=== PATIENT | female | born 1990 ===

== ENCOUNTER 2020-03-07 00:20 | Inpatient (IN) | payer OTHER ==
[2020-03-07] MEDS ORDERED: Promethazine HCl 25 MG/ML VIAL IM PRN ×2 (06:09→15:19)
[2020-03-07] MEDS ORDERED: Ondansetron PF 4 MG/2 ML Vial IVP PRN ×3 (06:09→15:19)
[2020-03-07] MEDS ORDERED: Lactated Ringer's 1,000 ML IV SCH (06:09)
[2020-03-07] MEDS ORDERED: hydrALAZINE 20 MG/ML VIAL SLOW IVP PRN ×2 (06:09→11:27)
[2020-03-07] MEDS ORDERED: CEFAZOLIN 2 GM in Premix Bag 1 BAG IVPB SCH (06:15)
[2020-03-07] MEDS ORDERED: Bicitra 30 ML UDCUP PO SCH (06:15)
[2020-03-07 06:18] VITALS: BMI 44.2
[2020-03-07 06:24] LABS: Hemoglobin 12.7 g/dL (12.0-16.0); Mean Corpuscular HGB CONC 34.5 g/dL (32.0-36.0); Mean Corpuscular Hemoglobin 28.7 pg (27.0-31.0); Mean Corpuscular Volume 83.2 fL (78.0-98.0); Mean Platelet Volume 9.5 fL (7.4-10.4); Platelet Count 180 thou/uL (130-400); RBC Distribution Width 14.6 % (11.5-14.5); Red Blood Cell (RBC) Count 4.42 mill/uL (4.20-5.40); White Blood Cell (WBC) Count 9.4 thou/uL (4.8-10.8)
[2020-03-07 07:00] LABS: Syphilis Antibody Nonreactive (Nonreactive); Syphilis Antibody Index 0.04 S/CO (<1.00 Non-Reactive)
[2020-03-07] MEDS ORDERED: EPHEDRINE 25 MG/5 ML SYRINGE ONE (07:03)
[2020-03-07] MEDS ORDERED: MORPHINE 5 MG/10 ML PF VIAL ONE (07:03)
[2020-03-07] MEDS ORDERED: PHENYLEPHRINE-NS 100 MCG/ML 10 ML SYRINGE ONE (07:03)
[2020-03-07] MEDS ORDERED: Ondansetron PF 4 MG/2 ML Vial ONE (07:03)
[2020-03-07] MEDS ORDERED: Ketorolac Tromethamine 30 MG/ML VIAL ONE (07:03)
[2020-03-07] MEDS ORDERED: Oxytocin 10 UNITS/ML VIAL ONE (07:03)
[2020-03-07 07:04] LABS: HBSAg Index 0.18 S/CO (0-0.99); Hep B Surf Ag Non-Reactive S/CO (NonReactive)
[2020-03-07] MEDS ORDERED: Lidocaine 1% PF 5 ML VIAL ONE (07:56)
[2020-03-07] MEDS ORDERED: Promethazine HCl 25 MG/ML VIAL ONE (08:52)
[2020-03-07] MEDS ORDERED: Sodium Chloride 0.9% 10 ML ONE (08:52)
[2020-03-07] MEDS ORDERED: Ondansetron HCl/PF 4 MG/2 ML Vial IVP PRN (09:18)
[2020-03-07] MEDS ORDERED: HYDROmorphone 2 MG/ML VIAL SLOW IVP PRN (09:18)
[2020-03-07] MEDS ORDERED: Meperidine HCl/PF 25 MG/ML VIAL SLOW IVP PRN (09:18)
[2020-03-07] MEDS ORDERED: L&D-Morphine 4 MG/ML VIAL SLOW IVP PRN (09:18)
[2020-03-07] MEDS ORDERED: Lanolin Ointment 7 GM TUBE TOP PRN (11:27)
[2020-03-07] MEDS ORDERED: Simethicone Chewable 80 MG TAB PO PRN (11:27)
[2020-03-07] MEDS ORDERED: HYDROcodone/Acetaminophen 5/325 mg Tablet PO PRN ×2 (11:27)
[2020-03-07] MEDS ORDERED: diphenhydrAMINE 25 MG CAP PO PRN (11:27)
[2020-03-07] MEDS ORDERED: NS / Oxytocin 40 units/1000ml 1,000 ML IV SCH (11:27)
[2020-03-07] MEDS ORDERED: Bisacodyl 10 MG SUPP PR PRN (11:27)
[2020-03-07] MEDS ORDERED: NS / Oxytocin 40 units/1000ml 1,000 ML ONE (11:29)
[2020-03-07] MEDS ORDERED: Prenatal Vitamin 1 TAB PO SCH (11:45)
[2020-03-07] MEDS ORDERED: Ketorolac Tromethamine 30 MG/ML VIAL IVP SCH (12:59)
[2020-03-07] MEDS ORDERED: Ibuprofen 800 MG TAB PO SCH (14:00)
[2020-03-07] MEDS ORDERED: Naloxone HCl 0.4 mg/ml Vial IVP PRN ×2 (15:19)
[2020-03-07] MEDS ORDERED: Naloxone HCl 0.4 mg/ml Vial IV PRN (15:19)
[2020-03-07] MEDS ORDERED: diphenhydrAMINE 50 MG/ML VIAL IVP PRN (15:19)
[2020-03-07] MEDS ORDERED: Promethazine HCl 25 MG SUPP PR PRN (15:19)
[2020-03-07] MEDS ORDERED: Communication Order-Pharmacy FS SCH (15:30)
--- NOTE | 2020-03-07 15:36 | OP ---
DATE OF PROCEDURE: 03/07/2020 PREOPERATIVE DIAGNOSES: Previous section, unstable lie, declines trial of labor. POSTOPERATIVE DIAGNOSES: Previous section, unstable lie, declines trial of labor. PROCEDURE PERFORMED: Low transverse section. ASSISTANTS: Shavonne Guzman MD and DAVID Walter3. ANESTHESIA: Spinal per Dr. Briscoe. COMPLICATIONS: None. EBL: 600 mL. OPERATIVE FINDINGS: 1. Low-transverse hysterotomy without extension. 2. Normal uterus, tubes, and ovaries bilaterally. 3. Infant delivered from vertex presentation with clear fluid, Apgars, weight, and pending female . 4. Fundus firm after delivery of placenta. 5. Surgical site hemostatic. PROCEDURE IN DETAIL: The patient was taken back to the OR with IV fluids running. Once she was in the OR, spinal anesthesia was obtained. Of note, it took approximately 30 minutes to obtain spinal anesthesia likely due to patient's body habitus. Once the anesthesia was obtained, the patient was placed in dorsal supine position with a left lateral tilt. Mendoza catheter was placed using sterile technique. The abdomen was prepped and draped in normal fashion for section. After SCDs were applied to the lower extremities, and 2 g of Ancef had been administered. After the abdomen was draped, the surgeons were gowned and gloved, and anesthesia was tested and found to be adequate. A Pfannenstiel skin incision was made with a scalpel. The skin incision was carried down through subcutaneous layer to the fascia. Once the fascia was reached, it was incised in the midline and extended superolaterally using curved Godwin scissors. Melodie clamps were placed at the superior border of the fascia, which was sharply and bluntly dissected off the rectus abdominis muscles in both cephalad and caudad directions. The rectus muscles were in the midline and bluntly stretched. Some peritoneal adhesions between the anterior abdominal wall, bladder reflection, and uterine serosa were dissected with Bovie cauterization. The Joseluis O retractor was placed into the peritoneal cavity for retraction visualization and protection of the wound. A low-transverse hysterotomy was then made with a scalpel and stretched using the Espinoza maneuver. An amniotomy was performed with clear fluid noted. Infant was delivered from vertex presentation. The nose and mouth were suctioned. The cord was doubly clamped and cut. The infant was handed off to special care nurse in attendance. Cord blood was collected. The uterus was exteriorized, massaged firm, and cleared of clot and debris. The uterus was returned to the abdominal cavity. The hysterotomy was closed with Monocryl suture in a running locked fashion. After the hysterotomy was closed, it was inspected, and a small area of bleeding was noted at the serosal edge in the left corner. An additional [id number] suture was placed here with hemostasis noted. The hysterotomy and paracolic gutters were then irrigated and suctioned dry. The hysterotomy was inspected again with no bleeding noted. The Joseluis O retractor was removed from the abdominal cavity. The omentum, rectus muscle, and fascia were inspected with no bleeding noted. The rectus fascia was then reapproximated from corner to corner and tied together in the midline using PDS suture. Subcutaneous layer was irrigated and dry. No areas of bleeding were noted. The subcutaneous layer was reapproximated with plain gut suture. The skin was closed with 4-0 Monocryl and dressed with a LEWIS prophylactic negative pressure dressing. The patient tolerated the procedure well. The counts were correct x2. The fundus was firm at the end of the case, and there were no complications. Job ID: [id number]
[2020-03-07] MEDS: Ketorolac Tromethamine 30 MG/ML VIAL IVP PRN (18:20)
[2020-03-07] MEDS: Docusate Calcium (SURFAK) 240 MG CAP PO SCH (21:43)
[2020-03-08] MEDS: Ketorolac Tromethamine 30 MG/ML VIAL IVP PRN (00:40)
[2020-03-08] MEDS: Ferrous Sulfate 325 MG TAB PO SCH ×2 (01:56→09:07)
[2020-03-08] MEDS: HYDROcodone/Acetaminophen 5/325 mg Tablet PO PRN ×4 (02:51→21:11)
[2020-03-08 05:55] LABS: Hemoglobin 10.8 g/dL (12.0-16.0); Mean Corpuscular HGB CONC 32.9 g/dL (32.0-36.0); Mean Corpuscular Volume 84.9 fL (78.0-98.0); Mean Platelet Volume 9.3 fL (7.4-10.4); Platelet Count 138 thou/uL (130-400); RBC Distribution Width 14.8 % (11.5-14.5); Red Blood Cell (RBC) Count 3.85 mill/uL (4.20-5.40); White Blood Cell (WBC) Count 8.9 thou/uL (4.8-10.8)
[2020-03-08] MEDS: Ibuprofen 800 MG TAB PO SCH ×3 (06:33→21:11)
[2020-03-08] MEDS ORDERED: Adacel (T-DAP) 0.5 ML SYRINGE IM ONE (09:00)
[2020-03-08] MEDS: Prenatal Vitamin 1 TAB PO SCH (09:06)
[2020-03-08] MEDS: Docusate Calcium (SURFAK) 240 MG CAP PO SCH ×2 (09:06→21:11)
--- NOTE | 2020-03-08 09:59 | PDOC.PP ---
Post Progress Note Post Day #: 1 Subjective: doing well, LEWIS dressing working well for her, baby latched well yesterday, pain is controlled PO intake tolerated: yes Flatus: yes Ambulation: yes Vital Signs (12 hours) Temp Pulse Resp BP Pulse Ox 03/08/20 06:24 98.6 F 87 16 108/57 L 98 03/08/20 00:29 98.0 F 96 18 109/60 Weight Weight 274 lb - Physical Examination General: NAD Psychiatric: A&Ox3, normal affect Result Diagrams: 03/08/20 05:44 Additional Labs: Post Labs Blood Type A NEGATIVE 03/07/20 06:10 Hep Bs Antigen Non-Reactive S/CO (NonReactive) 03/07/20 06:10 (1) 39 weeks gestation of Code(s): Z3A.39 - 39 WEEKS GESTATION OF Status: Acute (2) Status post repeat low transverse section Code(s): Z98.891 - HISTORY OF UTERINE SCAR FROM PREVIOUS SURGERY Status: Acute - Assessment/Plan POD1 doing well sp RCS. Likely DC tomorrow.
[2020-03-08] MEDS ORDERED: Ibuprofen 800 MG TAB PO SCH (22:00)
[2020-03-09] MEDS: Ferrous Sulfate 325 MG TAB PO SCH ×2 (04:46→08:05)
[2020-03-09] MEDS: Ibuprofen 800 MG TAB PO SCH (05:14)
[2020-03-09] MEDS: Docusate Calcium (SURFAK) 240 MG CAP PO SCH (08:01)
[2020-03-09] MEDS: Prenatal Vitamin 1 TAB PO SCH (08:01)
[2020-03-09] MEDS: HYDROcodone/Acetaminophen 5/325 mg Tablet PO PRN (08:02)
--- NOTE | 2020-03-09 08:15 | PDOC.PP ---
Post Progress Note Post Day #: 2 PO intake tolerated: yes Flatus: yes Ambulation: yes Vital Signs (12 hours) Temp Pulse Resp BP 03/09/20 05:10 97.8 F 88 18 126/76 03/09/20 00:20 97.8 F 82 18 116/58 L Weight Weight 274 lb - Physical Examination General: NAD Respiratory: non-labored breathing Abdominal: no distention, appropriately TTP Fundus firm & at: umb Skin: CS incision dry & intact (justice in place) Neurological: no gross focal deficits Psychiatric: normal affect Result Diagrams: 03/08/20 05:44 Additional Labs: Post Labs Blood Type A NEGATIVE 03/07/20 06:10 Hep Bs Antigen Non-Reactive S/CO (NonReactive) 03/07/20 06:10 - Assessment/Plan POD2 s/p RCS VSSAF Postop anemia d/t surgical blood loss, cont pNV, asx Met all postop milestones DC home FU 2 weeks
[2020-03-09 08:35] VITALS: BP 126/64; TEMP 98.2
== END 2020-03-09 11:25 | disposition home or self-care (01) | DRG 787 ==
LOC: L&D 05:28 → 3SW 11:55
PROVIDERS: ADMIT Obstetrics & Gynecology; ATTEND Obstetrics & Gynecology
PROC: 10D00Z1 Extraction of Products of Conception, Low, Open Approach (ICD-10-PCS; principal; 2020-03-07)
DX: O34.211 Maternal care for low transverse scar from previous cesarean delivery (principal); O98.52 Other viral diseases complicating childbirth; D62 Acute posthemorrhagic anemia; O32.1XX0 Maternal care for breech presentation, not applicable or unspecified; B00.9 Herpesviral infection, unspecified; O99.214 Obesity complicating childbirth; E66.9 Obesity, unspecified; Z3A.39 39 weeks gestation of pregnancy; Z37.0 Single live birth
CPT/HCPCS: 36415; 51702; 85027; 86780; 86850; 86870; 86900; 86901; 86922; 87340; 87635; J0690; J1885; J2274; J2405; J2550; J2590; U0003